=== PATIENT | female | born 1995 | race Caucasian/White ===

== ENCOUNTER 2017-03-26 09:42 | Emergency (ER) | payer OTHER ==
[2017-03-26 09:57] VITALS: BP 126/70
[2017-03-26] MEDS ORDERED: Acetaminophen ADULT LIQ* 650 MG/20.3 ML UDC PO ONE (10:28)
--- NOTE | 2017-03-26 11:03 | UC ---
Ear Complaint HPI - HPI Summary HPI Summary: 21 female presents with complaints of right ear pain that began Saturday. Patient states the ear feels plugged and is painful. States it has began to feel similar in the left ear upon waking this morning. Patient had cold symptoms and congestion about 1 week ago that has improved. Patient has tried taking Tylenol for the discomfort which does help her. She is currently 8 months . Denies nausea, vomiting, sore throat and fever/chills. Denies loss of hearing or discharge from both ears. Has not been swimming recently. No recent travel on airplane. - History of Current Complaint Chief Complaint: UCEar Stated Complaint: EARS,CONGESTION Time Seen by Provider: 03/26/17 10:12 Hx Obtained From: Patient Hx Last Menstrual Period: 07/10/16 ?: Yes Onset/Duration: Sudden Onset, Lasting Days Severity Initially: Mild Severity Currently: Moderate Pain Intensity: 5 Pain Scale Used: 0-10 Numeric Aggravating Factors: Nothing Alleviating Factors: OTC Meds - Tylenol Associated Signs/Symptoms: Positive: URI Symptoms. Negative: Discharge, Hearing Loss, Foreign Body Sensation, Trauma to Ear, Swelling @ Related History: Seasonal Allergies - Allergies/Home Medications Allergies/Adverse Reactions: Allergies Allergy/AdvReac Type Severity Reaction Status Date / Time seasonal Allergy Sneezing Uncoded 03/26/17 09:57 Home Medications: Home Medications Acetaminophen TAB* [Tylenol TAB*] 650 mg PO Q24H PRN 03/26/17 [History Confirmed 03/26/17] Vitamin TAB* 1 tab PO QAM 03/26/17 [History Confirmed 03/26/17] PMH/Surg Hx/FS Hx/Imm Hx Cardiovascular History Of: Denies: Hypertension Respiratory History Of: Denies: Asthma - Surgical History Surgical History: Yes Surgery Procedure, Year, and Place: tonsillectomy - Family History Known Family History: Positive: None - Social History Alcohol Use: None Substance Use Type: None Smoking Status (MU): Never Smoked Tobacco - Immunization History Vaccination Up to Date: Yes Review of Systems Constitutional: Negative Skin: Negative Eyes: Negative ENT: Ear Ache Respiratory: Negative Cardiovascular: Negative Gastrointestinal: Negative Motor: Negative Neurological: Negative All Other Systems Reviewed And Are Negative: Yes Physical Exam Triage Information Reviewed: Yes Appearance: Well-Appearing, No Pain Distress, Well-Nourished Vital Signs: Initial Vital Signs Temp 98.9 F 03/26/17 09:50 Pulse 72 03/26/17 09:50 Resp 18 03/26/17 09:50 BP 126/70 03/26/17 09:50 Pulse Ox 98 03/26/17 09:50 Vital Signs Reviewed: Yes Eyes: Positive: Conjunctiva Clear ENT: Positive: Hearing grossly normal, Pharynx normal, Nasal drainage, TMs normal - right external canal erythematous with white exudate noted, serous effusion behind TM b/l. without cerumen, TM dull. Negative: Pharyngeal erythema , TM bulging, TM red, Trismus, Muffled/hoarse voice Dental: Negative: Percussion Tenderness @, Cervical Lymphadenopathy Neck exam: Normal Neck: Positive: Supple, Nontender, No Lymphadenopathy Respiratory Exam: Normal Respiratory: Positive: Chest non-tender, Lungs clear, Normal breath sounds, No respiratory distress, No accessory muscle use Cardiovascular: Positive: RRR, No Murmur, Pulses Normal, Brisk Capillary Refill Musculoskeletal: Positive: Strength Intact, ROM Intact Neurological: Positive: Alert Skin Exam: Normal Ear Complaint Course/Dx - Course Course Of Treatment: given tylenol while in office. will be treated for seasonal allergies with antihistamine based on PE findings and HPI. Due to PE findings and HPI with right ear, will be treated for otitis externa with ciprodex. fluids, rest. Aware of worsening signs and symptoms. Follow up. No concern for otitis media or other etiologies at this time. - Differential Dx/Diagnosis Differential Diagnosis/HQI/PQRI: Cerumen Impaction, Foreign Body, Mastoiditis, Otitis Externa, Otitis Media, Perforated TM, URI, Other Provider Diagnoses: otitis externa of right ear, seasonal allergies Discharge - Discharge Plan Condition: Stable Disposition: HOME Prescriptions: Cetirizine* [ZyrTEC 10 MG TAB*] 10 mg PO DAILY #7 tab Ciproflox/Dexameth OTIC.SUSP* [Ciprodex OTIC.SUSP*] 4 drop RIGHT EAR BID #1 btl Patient Education Materials: Allergies (ED), Otitis Externa (ED) Referrals: Lisa DE JESUS,Arvind [Medical Doctor] - Additional Instructions: Take prescribed Zyrtec to help with fluid behind ear drum and lingering congestion. Continue Tylenol for pain and discomfort. Increase fluids intake. Use prescribed ear drops in right ear to help with ear infection. Follow up with primary care provider. If symptoms worsen or do not improve please return or seek medical attention.
== END 2017-03-26 11:15 | disposition home or self-care (01) ==
LOC: UCCORT 09:42
DX: H66.91 Otitis media, unspecified, right ear (principal); J30.2 Other seasonal allergic rhinitis
CPT/HCPCS: 99212; A9270-GY; G0463

== ENCOUNTER 2017-05-23 14:24 | Emergency (ER) | payer OTHER ==
[2017-05-23 14:34] VITALS: BP 103/72
--- NOTE | 2017-05-23 15:08 | UC ---
Throat Pain/Nasal Sean HPI - HPI Summary HPI Summary: ONE WEEK OF SORE THROAT NO FEVERS. WORSE YESTERDAY. EXPOSED TO CHILD LAST WEEK WITH STREP. NO ABDOMINAL PAIN. NO RASHES. - History of Current Complaint Chief Complaint: UCRespiratory Stated Complaint: SORE THROAT Time Seen by Provider: 05/23/17 14:33 Hx Obtained From: Patient Hx Last Menstrual Period: 04/23/17 Onset/Duration: Gradual Onset, Lasting Weeks, Still Present Severity: Mild Cough: None Associated Signs & Symptoms: Positive: Hoarseness. Negative: Sinus Discomfort, Nasal Discharge, Fever - Epiglottits Risk Factors Epiglottis Risk Factors: Negative - Allergies/Home Medications Allergies/Adverse Reactions: Allergies Allergy/AdvReac Type Severity Reaction Status Date / Time bee Allergy See Comment Uncoded 05/23/17 14:35 seasonal Allergy Sneezing Uncoded 05/23/17 14:35 PMH/Surg Hx/FS Hx/Imm Hx Previously Healthy: Yes - Surgical History Surgical History: Yes Surgery Procedure, Year, and Place: . tonsillectomy - Family History Known Family History: Positive: None - Social History Occupation: Unemployed - SAHM Lives: With Family Alcohol Use: None Substance Use Type: None Smoking Status (MU): Never Smoked Tobacco - Immunization History Vaccination Up to Date: Yes Review of Systems Constitutional: Negative Skin: Negative Eyes: Negative ENT: Sore Throat Respiratory: Negative Cardiovascular: Negative Gastrointestinal: Negative Genitourinary: Negative Motor: Negative Neurovascular: Negative Musculoskeletal: Negative Neurological: Negative Psychological: Negative All Other Systems Reviewed And Are Negative: Yes Physical Exam Triage Information Reviewed: Yes Appearance: Well-Appearing, No Pain Distress, Well-Nourished Vital Signs: Initial Vital Signs Temp 98.9 F 05/23/17 14:32 Pulse 72 05/23/17 14:32 Resp 16 05/23/17 14:32 BP 103/72 05/23/17 14:32 Pulse Ox 99 05/23/17 14:32 Vital Signs Reviewed: Yes Eye Exam: Normal ENT: Positive: Hearing grossly normal, Pharyngeal erythema, TMs normal Dental Exam: Normal Neck exam: Normal Neck: Positive: Supple, Nontender, No Lymphadenopathy Respiratory Exam: Normal Respiratory: Positive: Chest non-tender, Lungs clear, Normal breath sounds, No respiratory distress, No accessory muscle use Cardiovascular Exam: Normal Cardiovascular: Positive: RRR, No Murmur, Pulses Normal Abdominal Exam: Normal Musculoskeletal Exam: Normal Musculoskeletal: Positive: Strength Intact, ROM Intact Neurological Exam: Normal Psychological Exam: Normal Skin Exam: Normal Throat Pain/Nasal Course/Dx - Differential Dx/Diagnosis Differential Diagnosis/HQI/PQRI: Tonsillitis, URI Provider Diagnoses: PHARYNGITIS Discharge - Discharge Plan Condition: Stable Disposition: HOME Patient Education Materials: Pharyngitis (ED) Referrals: [facility] [Outside] No Primary Care Phys,NOPCP [Primary Care Provider] - Additional Instructions: PRIMARY CARE: There are four major types of clinical preventive care: immunizations, screening , behavioral counseling (sometimes referred to as lifestyle changes), and chemoprevention. All four apply throughout the life span. It is important to establish and to have access to a Primary Care Physician, not only for follow- up regrding acute and chronic problems, but also for preventative care.
== END 2017-05-23 15:06 | disposition home or self-care (01) ==
LOC: UCCORT 14:24
DX: J02.9 Acute pharyngitis, unspecified (principal)
CPT/HCPCS: 87651; 99211; G0463

== ENCOUNTER 2019-05-02 12:32 | Emergency (ER) | payer SELFPAY ==
[2019-05-02 13:06] VITALS: BP 104/61
--- NOTE | 2019-05-02 13:13 | UC ---
Skin Complaint HPI - HPI Summary HPI Summary: 24 yo female with hives x hours on macrobid day # 5 for UTI no longer has UTI symptoms no wheezing or tight throat - History of Current Complaint Chief Complaint: UCSkin Time Seen by Provider: 05/02/19 13:13 Stated Complaint: SKIN COMPLAINT Hx Obtained From: Patient Hx Last Menstrual Period: 3 weeks ago Onset/Duration: Gradual Onset, Lasting Hours Timing: Constant Onset Severity: Mild Current Severity: None Pain Intensity: 0 - ++++ itching Pain Scale Used: 0-10 Numeric Location: Diffuse Character: Pruritus, Hives Aggravating Factor(s): Nothing Alleviating Factor(s): Nothing Associated Signs & Symptoms: Positive: Rash - Allergy/Home Medications Allergies/Adverse Reactions: Allergies Allergy/AdvReac Type Severity Reaction Status Date / Time bee Allergy See Comment Uncoded 05/23/17 14:35 seasonal Allergy Sneezing Uncoded 05/23/17 14:35 Home Medications: Home Medications Antibiotic For Uti PO DAILY 05/02/19 [History] PMH/Surg Hx/FS Hx/Imm Hx Previously Healthy: Yes - Surgical History Surgical History: Yes Surgery Procedure, Year, and Place: . tonsillectomy - Family History Known Family History: Positive: None - Social History Alcohol Use: None Substance Use Type: None Smoking Status (MU): Never Smoked Tobacco - Immunization History Vaccination Up to Date: Yes Review of Systems All Other Systems Reviewed And Are Negative: Yes Skin: Positive: Rash Eyes: Positive: Negative ENT: Positive: Negative Respiratory: Positive: Negative Cardiovascular: Positive: Negative Gastrointestinal: Positive: Negative Genitourinary: Positive: Negative Motor: Positive: Negative Neurovascular: Positive: Negative Musculoskeletal: Positive: Negative Neurological: Positive: Negative Psychological: Positive: Negative Physical Exam Triage Information Reviewed: Yes Appearance: Well-Appearing, No Pain Distress, Well-Nourished Vital Signs: Initial Vital Signs Temp 97.3 F 05/02/19 13:00 Pulse 64 05/02/19 13:00 Resp 18 05/02/19 13:00 BP 104/61 05/02/19 13:00 Pulse Ox 98 05/02/19 13:00 Vital Signs Reviewed: Yes Eyes: Positive: Conjunctiva Clear ENT: Positive: Hearing grossly normal. Negative: Nasal congestion, Nasal drainage, Trismus, Muffled voice, Hoarse voice Neck: Positive: Supple, Nontender, No Lymphadenopathy Respiratory: Positive: Lungs clear, Normal breath sounds, No respiratory distress Cardiovascular: Positive: RRR, No Murmur Musculoskeletal: Positive: No Edema Neurological: Positive: Alert Psychological Exam: Normal Skin Exam: Other - hives on arms and left hand Course/Dx - Diagnoses Provider Diagnosis: Urticaria due to drug allergy Discharge - Sign-Out/Discharge Documenting (check all that apply): Patient Departure All imaging exams completed and their final reports reviewed: No Studies - Discharge Plan Condition: Stable Disposition: HOME Prescriptions: Cephalexin CAP* [Keflex CAP*] 500 mg PO BID #4 cap hydrOXYzine HCL TAB* [Atarax TAB*] 25 mg PO QID PRN #8 tab PRN Reason: Itching Patient Education Materials: Urticaria (ED) Forms: *Work Release Referrals: Barbara Triplett [Primary Care Provider] - 3 Days Additional Instructions: Stop macrobid. I suspect you are allergic to it - Billing Disposition and Condition Condition: STABLE Disposition: Home
== END 2019-05-02 13:27 | disposition home or self-care (01) ==
LOC: UCCORT 12:32
DX: L50.0 Allergic urticaria (principal); T37.8X5A Adverse effect of other specified systemic anti-infectives and antiparasitics, initial encounter; Y92.9 Unspecified place or not applicable
CPT/HCPCS: 99212; G0463